=== PATIENT | male | born 2000 | race Caucasian/White ===

== ENCOUNTER 2020-05-09 06:54 | Outpatient (NON) | payer BC, SELFPAY ==
[2020-05-09 21:57] LABS: SARS-CoV-2 RNA PCR Negative
== END 2020-05-09 06:55 ==
LOC: ANHCOVIDDT 07:08
PROVIDERS: PCP Family Medicine; Visit Provider Advanced Practice Midwife
DX: Z20.822 Contact with and (suspected) exposure to COVID-19 (principal)
CPT/HCPCS: C9803; U0003; U0005

== ENCOUNTER 2023-07-09 15:12 | Outpatient (CLI) | payer BC, SELFPAY ==
--- NOTE | ~2023-07-09 | US_ITS ---
EXAMINATION: US scrotum doppler DATE: 07/09/2023 15:38 INDICATION: Left testicular and groin pain TECHNIQUE: Testicular sonogram utilizing grayscale and Doppler COMPARISON: None. FINDINGS: The right testis measures 3.8 x 2.5 x 2.1 cm. The left testis measures 4.0 x 2.2 x 1.8 cm. There is normal vascular flow to both testes. The right epididymis is normal with normal vascular love w. The left epididymis is normal with normal vascular flow. There is no varicocele or hydrocele. IMPRESSION: 1. No sonographic correlate for the patient's symptoms. Reviewed, dictated and finalized at location F.
== END 2023-07-09 15:13 ==
PROVIDERS: PCP Family Medicine; Visit Provider Family Medicine
DX: R10.32 Left lower quadrant pain (principal); N50.812 Left testicular pain
CPT/HCPCS: 76870; 93976

== ENCOUNTER 2024-12-16 10:42 | Outpatient (CLI) | payer BC, SELFPAY ==
--- NOTE | ~2024-12-16 | XR_ITS ---
EXAM/ PROCEDURE: XR lumbar spine 2-3V - 12/16/2024 11:00 CDT HISTORY: 24 years old Male with Radiculopathy, lumbar region, pt had varicose vein surg COMPARISON: None available TECHNIQUE: Three view(s) FINDINGS/ IMPRESSION: There are no fractures or dislocations.Intervertebral disc spaces are within normal limits. ' Multiple coils are seen in the left pelvis. Reviewed, dictated and finalized at location N.
== END 2024-12-16 10:43 | disposition home or self-care (01) ==
LOC: GOSHIMG 10:44
PROVIDERS: PCP Family Medicine; Visit Provider Nurse Practitioner Family
DX: M54.16 Radiculopathy, lumbar region (principal); Z96.89 Presence of other specified functional implants
CPT/HCPCS: 72100